=== PATIENT | male | born 1970 | race Caucasian/White ===

== ENCOUNTER 2021-06-15 14:52 | Inpatient (IN) | payer MEDICAID, OTHER ==
[~2021-06-15] VITALS: Ht 182.9 cm; Wt 91.1 kg
[~2021-06-15 14:52] MED LIST: ENAL2.5T7 PO; INSLANTI SC; INSLISPI SC; METO25TA5 PO
[2021-06-15 15:30] LABS: Basophils # (auto) 0.1 10 ^3/uL (0-0.2); Basophils % (auto) 0.4 % (0.0-2.0); Eosinophils # (auto) 0 10 ^3/uL (0-0.8); Eosinophils % (auto) 0.1 % (0.0-7.0); Hematocrit 34.4 % (41.0-53.0); Hemoglobin 11.3 g/dL (13.5-17.5); Lymphocytes # (auto) 0.9 10 ^3/uL (0.4-5.4); Lymphocytes % (auto) 6.8 % (10.0-50.0); Mean Corpuscular Hemoglobin 27.4 pg (28.0-32.0); Mean Corpuscular Hgb Conc. 32.9 g/dL (32.0-36.0); Mean Corpuscular Volume 83.2 fL (80.0-100.0); Monocytes # (auto) 0.8 10 ^3/uL (0-1.3); Monocytes % (auto) 6.3 % (0.0-12.0); Neutrophils # (auto) 11.1 10 ^3/uL (1.6-8.6); Neutrophils % (auto) 86.4 % (37.0-80.0); Red Blood Cells 4.13 10^6/uL (4.5-5.90); Red Cell Distribution Width 15.1 % (11.8-14.3); White Blood Cell 12.8 10^3/uL (4.4-10.8)
[2021-06-15 15:50] LABS: Albumin 3.1 g/dL (3.4-5.0); BUN/Creatinine Ratio 12.2; Potassium 5.1 mmol/L (3.5-5.1)
[2021-06-15 15:53] LABS: Bilirubin, Total 0.4 mg/dL (0.2-1.0); Total Protein 7.9 g/dL (6.4-8.2)
[2021-06-15] MEDS ORDERED: DEXTROSE (50%) 50ML SYRG IV ONE (16:45)
[2021-06-15] MEDS ORDERED: MORPHINE SULF INJ 2 MG/ML SYRINGE 1ML IV PRN (16:45)
[2021-06-15] MEDS ORDERED: NITROGLYCERIN 0.4 MG SL TAB SL PRN (16:45)
[2021-06-15] MEDS ORDERED: ONDANSETRON HCL 4 MG/2 ML VIAL IV PRN (16:45)
[2021-06-15] MEDS ORDERED: ACCU-CHEK COMFORT CURVE STRIP VI ONE (17:00)
[2021-06-15] MEDS ORDERED: InsuLIN REG 1unit/0.01ml Soln (100units/ml) SC ONE (17:00)
[2021-06-15 17:57] LABS: Urine WBC None Seen /hpf (0 - 3)
[2021-06-15 18:01] LABS: Urine Bacteria NONE SEEN /hpf (None Seen); Urine Blood 3+ /uL (Negative); Urine Budding Yeast MANY /hpf (None Seen); Urine Specific Gravity 1.016 (1.001-1.035); Urine Sperm PRESENT /hpf (None Seen)
[2021-06-15 18:08] LABS: Alcohol, Urine < 3.0 mg/dL (0-10); Amphetamine Screen, Urine POSITIVE (NEGATIVE); Barbiturate Scree,Urine NEGATIVE (NEGATIVE); Benzodiazephine Screen, Urine NEGATIVE (NEGATIVE); Cannabinoid Screen, Urine POSITIVE (NEGATIVE); Cocaine Screen, Urine NEGATIVE (NEGATIVE); Opiate Scree,Urine NEGATIVE (NEGATIVE)
[2021-06-15 18:15] LABS: Phencyclidine Screen, Urine NEGATIVE (NEGATIVE)
[2021-06-15] MEDS: METOPROLOL TARTRATE 25 MG TAB PO SCH (22:03)
[2021-06-15 22:38] VITALS: BP 168/93
[2021-06-15] MEDS ORDERED: LISI20TA28 PO (22:55)
[2021-06-16] MEDS: MORPHINE SULF INJ 2 MG/ML SYRINGE 1ML IV PRN ×2 (03:14→19:06)
[2021-06-16] MEDS: ACETAMINOPHEN 325 MG TAB PO PRN (03:20)
[2021-06-16 04:57] LABS: Hematocrit 36.1 % (41.0-53.0); Mean Corpuscular Hemoglobin 27.5 pg (28.0-32.0); Mean Corpuscular Hgb Conc. 33.2 g/dL (32.0-36.0); Mean Corpuscular Volume 82.9 fL (80.0-100.0); Red Blood Cells 4.36 10^6/uL (4.5-5.90); Red Cell Distribution Width 15.3 % (11.8-14.3); White Blood Cell 24.7 10^3/uL (4.4-10.8)
[2021-06-16 05:00] VITALS: BP 124/79
[2021-06-16 05:16] LABS: Albumin 2.7 g/dL (3.4-5.0); BUN/Creatinine Ratio 14.2; Calcium 7.8 mg/dL (8.5-10.1); Potassium 4.8 mmol/L (3.5-5.1)
[2021-06-16 05:18] LABS: Bilirubin, Total 0.4 mg/dL (0.2-1.0); Total Protein 7.7 g/dL (6.4-8.2)
[2021-06-16 05:20] LABS: Basophils % (manual) 0 (0.0-2.0); Blast Cells 0; Eosinophils % (manual) 0 (0-7); Metamyelocytes % 0; Myelocytes % 0; Promyelocytes % 0; Reactive Lymphocytes 0
[2021-06-16 06:06] LABS: Band Neutrophils % (manual) 33; Lymphocytes % (manual) 1 (10.0-50.0); Monocytes % (manual) 2 (0-12)
[2021-06-16 08:00] VITALS: BP 121/77
[2021-06-16 09:00] VITALS: BP 121/77
[2021-06-16] MEDS ORDERED: ENALAPRIL MALEATE 2.5 MG TAB PO SCH (10:00)
[2021-06-16] MEDS: METOPROLOL TARTRATE 25 MG TAB PO SCH ×2 (10:30→21:51)
[2021-06-16] MEDS: ENALAPRIL MALEATE 10 MG TAB PO SCH (10:30)
[2021-06-16] MEDS ORDERED: VANCOMYCIN PER PHARMACY 0 MG IV SCH (11:00)
[2021-06-16] MEDS ORDERED: VANCOMYCIN 1GM/250ML 250 ML IV ONE (12:00)
[2021-06-16 13:00] VITALS: BP 95/57
[2021-06-16] MEDS: FUROSEMIDE 40 MG/4 ML VIAL IV SCH ×2 (13:10→18:40)
[2021-06-16] MEDS: SODIUM BICARBONATE 650 MG TAB PO SCH ×2 (14:50→21:51)
[2021-06-16 17:00] VITALS: BP 102/63
[2021-06-16] MEDS: SEVELAMER 800 MG TAB PO SCH (18:39)
[2021-06-16 22:00] VITALS: BP 144/73
[2021-06-17] MEDS: ACETAMINOPHEN 325 MG TAB PO PRN (04:52)
[2021-06-17] MEDS: SODIUM BICARBONATE 650 MG TAB PO SCH ×2 (04:53→21:42)
[2021-06-17 05:00] VITALS: BP 109/64
[2021-06-17 05:30] LABS: Eosinophils # (auto) 0 10 ^3/uL (0-0.8); Eosinophils % (auto) 0.1 % (0.0-7.0); Monocytes # (auto) 0.6 10 ^3/uL (0-1.3); Nucleated Red Blood Cells % 0.1 %; Red Cell Distribution Width 15.2 % (11.8-14.3)
[2021-06-17 05:36] LABS: BUN/Creatinine Ratio 21.2; Calcium 7.6 mg/dL (8.5-10.1); Potassium 4.9 mmol/L (3.5-5.1)
[2021-06-17 05:49] LABS: Basophils # (auto) 0.1 10 ^3/uL (0-0.2); Basophils % (auto) 0.4 % (0.0-2.0); Hematocrit 33.5 % (41.0-53.0); Hemoglobin 11.1 g/dL (13.5-17.5); Lymphocytes # (auto) 0.5 10 ^3/uL (0.4-5.4); Lymphocytes % (auto) 3.4 % (10.0-50.0); Mean Corpuscular Hemoglobin 27.5 pg (28.0-32.0); Mean Corpuscular Hgb Conc. 33.2 g/dL (32.0-36.0); Mean Corpuscular Volume 82.9 fL (80.0-100.0); Monocytes % (auto) 3.8 % (0.0-12.0); Neutrophils # (auto) 13.9 10 ^3/uL (1.6-8.6); Neutrophils % (auto) 92.3 % (37.0-80.0); Red Blood Cells 4.04 10^6/uL (4.5-5.90)
[2021-06-17] MEDS: FUROSEMIDE 40 MG/4 ML VIAL IV SCH (06:12)
[2021-06-17 08:11] VITALS: BP 95/55
[2021-06-17 08:30] VITALS: BP 95/55
[2021-06-17] MEDS: SEVELAMER 800 MG TAB PO SCH ×3 (08:40→18:15)
[2021-06-17] MEDS: METOPROLOL TARTRATE 25 MG TAB PO SCH ×2 (09:56→21:42)
[2021-06-17] MEDS: ENALAPRIL MALEATE 10 MG TAB PO SCH (09:57)
[2021-06-17] MEDS ORDERED: LIDOCAINE 2%HCL (LOCAL ANESTH.) INJ 20ML MDV ONE (11:51)
[2021-06-17 12:43] VITALS: BP 93/52
[2021-06-17] MEDS ORDERED: SODIUM CHLORIDE 0.9% 1,000 ML IV ONE (12:45)
[2021-06-17] MEDS ORDERED: VANCOMYCIN 500 MG in D5W 5% 100 ML IV ONE (16:00)
[2021-06-17 17:17] VITALS: BP 115/56
[2021-06-17] MEDS: MORPHINE SULF INJ 2 MG/ML SYRINGE 1ML IV PRN (18:16)
[2021-06-17 21:55] VITALS: BP 141/78
[2021-06-18] MEDS: MORPHINE SULF INJ 2 MG/ML SYRINGE 1ML IV PRN ×4 (01:17→22:32)
[2021-06-18] MEDS: ACETAMINOPHEN 325 MG TAB PO PRN (04:08)
[2021-06-18 05:22] VITALS: BP 119/78
[2021-06-18 05:53] LABS: BUN/Creatinine Ratio 23.6; Calcium 7.2 mg/dL (8.5-10.1); Potassium 4.5 mmol/L (3.5-5.1)
[2021-06-18 07:35] VITALS: BP 99/64
[2021-06-18] MEDS: SEVELAMER 800 MG TAB PO SCH ×3 (07:57→18:19)
[2021-06-18] MEDS ORDERED: cefTRIAXone 1GM/50ML D5W 50 ML IV SCH (09:00)
[2021-06-18] MEDS: METOPROLOL TARTRATE 25 MG TAB PO SCH ×2 (10:15→22:31)
[2021-06-18] MEDS: FUROSEMIDE 40 MG/4 ML VIAL IV SCH (10:15)
[2021-06-18] MEDS: ENALAPRIL MALEATE 10 MG TAB PO SCH (10:15)
[2021-06-18] MEDS: SODIUM BICARBONATE 650 MG TAB PO SCH ×2 (10:15→22:31)
[2021-06-18 13:03] VITALS: BP 99/63
[2021-06-18] MEDS ORDERED: VANCOMYCIN 500 MG in D5W 5% 100 ML IV ONE (16:00)
[2021-06-18 17:10] VITALS: BP 157/86
[2021-06-18 21:52] VITALS: BP 137/85
[2021-06-19] MEDS: MORPHINE SULF INJ 2 MG/ML SYRINGE 1ML IV PRN ×5 (03:00→21:21)
[2021-06-19 05:46] VITALS: BP 136/78
[2021-06-19 09:00] VITALS: BP 114/69
[2021-06-19] MEDS: SEVELAMER 800 MG TAB PO SCH ×3 (09:20→19:04)
[2021-06-19] MEDS: SODIUM BICARBONATE 650 MG TAB PO SCH ×2 (09:20→22:08)
[2021-06-19] MEDS: METOPROLOL TARTRATE 25 MG TAB PO SCH ×2 (09:22→22:09)
[2021-06-19] MEDS: FUROSEMIDE 40 MG/4 ML VIAL IV SCH (09:22)
[2021-06-19 13:00] VITALS: BP 103/71
[2021-06-19 17:00] VITALS: BP 101/63
[2021-06-19] MEDS ORDERED: VANCOMYCIN 500 MG in D5W 5% 100 ML IV ONE (18:00)
[2021-06-19 22:00] VITALS: BP 123/71
[2021-06-20] MEDS: MORPHINE SULF INJ 2 MG/ML SYRINGE 1ML IV PRN ×5 (00:39→21:57)
[2021-06-20 05:00] VITALS: BP 123/71
[2021-06-20 06:11] LABS: Basophils # (auto) 0 10 ^3/uL (0-0.2); Basophils % (auto) 0.4 % (0.0-2.0); Eosinophils # (auto) 0.1 10 ^3/uL (0-0.8); Eosinophils % (auto) 0.8 % (0.0-7.0); Hematocrit 30.3 % (41.0-53.0); Hemoglobin 10.3 g/dL (13.5-17.5); Lymphocytes # (auto) 0.7 10 ^3/uL (0.4-5.4); Lymphocytes % (auto) 7.6 % (10.0-50.0); Mean Corpuscular Hemoglobin 27.8 pg (28.0-32.0); Mean Corpuscular Volume 81.9 fL (80.0-100.0); Monocytes # (auto) 0.7 10 ^3/uL (0-1.3); Monocytes % (auto) 7.8 % (0.0-12.0); Neutrophils # (auto) 7.2 10 ^3/uL (1.6-8.6); Neutrophils % (auto) 83.4 % (37.0-80.0); Red Cell Distribution Width 14.8 % (11.8-14.3); White Blood Cell 8.6 10^3/uL (4.4-10.8)
[2021-06-20 06:26] LABS: BUN/Creatinine Ratio 26.8; Calcium 7.6 mg/dL (8.5-10.1); Magnesium 2.2 mg/dL (1.6-2.6); Potassium 4.7 mmol/L (3.5-5.1)
[2021-06-20] MEDS ORDERED: SODIUM CHL 0.9% 1000 ML BAG XX ONE (07:00)
[2021-06-20 08:53] VITALS: BP 113/74
[2021-06-20] MEDS: SEVELAMER 800 MG TAB PO SCH ×3 (09:37→19:05)
[2021-06-20] MEDS: METOPROLOL TARTRATE 25 MG TAB PO SCH ×2 (09:37→21:58)
[2021-06-20] MEDS: SODIUM BICARBONATE 650 MG TAB PO SCH ×2 (09:37→21:57)
[2021-06-20] MEDS ORDERED: FUROSEMIDE 100 MG/10ML VIAL IV SCH (10:00)
[2021-06-20] MEDS ORDERED: VANCOMYCIN 500 MG in D5W 5% 100 ML IV ONE (12:30)
[2021-06-20 13:06] VITALS: BP 105/72
[2021-06-20 16:22] VITALS: BP 118/74
[2021-06-20 20:00] VITALS: BP 110/70
[2021-06-20] MEDS ORDERED: EPOETIN ALFA-EPBX 10,000 UNIT/1ML VIAL SC ONE (21:00)
[2021-06-20 22:00] VITALS: BP 125/77
[2021-06-21] MEDS: MORPHINE SULF INJ 2 MG/ML SYRINGE 1ML IV PRN ×4 (04:10→22:38)
[2021-06-21 05:00] VITALS: BP 121/71
[2021-06-21 06:02] LABS: Basophils # (auto) 0 10 ^3/uL (0-0.2); Basophils % (auto) 0.5 % (0.0-2.0); Eosinophils # (auto) 0.1 10 ^3/uL (0-0.8); Eosinophils % (auto) 1.4 % (0.0-7.0); Hematocrit 30.9 % (41.0-53.0); Hemoglobin 10.4 g/dL (13.5-17.5); Lymphocytes # (auto) 0.8 10 ^3/uL (0.4-5.4); Lymphocytes % (auto) 11.8 % (10.0-50.0); Mean Corpuscular Hemoglobin 27.4 pg (28.0-32.0); Mean Corpuscular Hgb Conc. 33.6 g/dL (32.0-36.0); Mean Corpuscular Volume 81.8 fL (80.0-100.0); Monocytes # (auto) 0.7 10 ^3/uL (0-1.3); Monocytes % (auto) 10.5 % (0.0-12.0); Neutrophils # (auto) 5.3 10 ^3/uL (1.6-8.6); Neutrophils % (auto) 75.8 % (37.0-80.0); Red Blood Cells 3.78 10^6/uL (4.5-5.90); Red Cell Distribution Width 15.1 % (11.8-14.3)
[2021-06-21 06:31] LABS: Potassium 5.3 mmol/L (3.5-5.1)
[2021-06-21 06:35] LABS: BUN/Creatinine Ratio 27.8; Magnesium 2.3 mg/dL (1.6-2.6)
[2021-06-21 09:00] VITALS: BP 118/64
[2021-06-21] MEDS: METOPROLOL TARTRATE 25 MG TAB PO SCH ×2 (10:00→22:37)
[2021-06-21] MEDS: SODIUM BICARBONATE 650 MG TAB PO SCH ×2 (10:12→22:37)
[2021-06-21] MEDS: SEVELAMER 800 MG TAB PO SCH (10:12)
[2021-06-21] MEDS: SODIUM CHLORIDE 0.9% 1,000 ML IV SCH ×2 (11:45→21:30)
[2021-06-21] MEDS ORDERED: VANCOMYCIN 1GM/250ML 250 ML IV ONE (12:00)
[2021-06-21 13:00] VITALS: BP 104/69
[2021-06-21] MEDS: SODIUM ZIRCONIUM CYCL 10 GM PAK PO SCH (16:27)
[2021-06-21 17:00] VITALS: BP 134/64
[2021-06-21 22:00] VITALS: BP 158/76
[2021-06-22] MEDS: MORPHINE SULF INJ 2 MG/ML SYRINGE 1ML IV PRN ×4 (04:52→23:40)
[2021-06-22 05:27] VITALS: BP 140/71
[2021-06-22] MEDS: SODIUM CHLORIDE 0.9% 1,000 ML IV SCH ×2 (05:53→22:00)
[2021-06-22 06:24] LABS: BUN/Creatinine Ratio 28.6; Calcium 7.6 mg/dL (8.5-10.1)
[2021-06-22 06:31] LABS: Potassium 5.6 mmol/L (3.5-5.1)
[2021-06-22 09:00] VITALS: BP 154/87
[2021-06-22] MEDS: SODIUM ZIRCONIUM CYCL 10 GM PAK PO SCH (10:20)
[2021-06-22] MEDS: METOPROLOL TARTRATE 25 MG TAB PO SCH ×2 (10:56→21:48)
[2021-06-22] MEDS: SODIUM BICARBONATE 650 MG TAB PO SCH ×2 (10:57→21:48)
[2021-06-22 13:00] VITALS: BP 132/91
[2021-06-22] MEDS ORDERED: BUMETANIDE 2.5mg/10ml (0.25 mg/ml) INJ IV ONE (14:15)
[2021-06-22 17:00] VITALS: BP 140/82
[2021-06-22] MEDS: HYDROcodone-ACET 5/325MG TAB PO PRN (20:21)
[2021-06-22] MEDS: LINEZOLID 600MG TABLET PO SCH (21:49)
[2021-06-22 22:00] VITALS: BP 143/77
[2021-06-22] MEDS ORDERED: VANCOMYCIN 1GM/250ML 250 ML IV ONE (23:45)
[2021-06-23 05:00] VITALS: BP 150/83
[2021-06-23] MEDS: MORPHINE SULF INJ 2 MG/ML SYRINGE 1ML IV PRN ×3 (06:04→18:17)
[2021-06-23] MEDS: SODIUM CHLORIDE 0.9% 1,000 ML IV SCH ×2 (06:52→13:30)
[2021-06-23 09:00] VITALS: BP 154/80
[2021-06-23] MEDS: LINEZOLID 600MG TABLET PO SCH ×2 (10:31→21:20)
[2021-06-23] MEDS: SODIUM ZIRCONIUM CYCL 10 GM PAK PO SCH (10:31)
[2021-06-23] MEDS: METOPROLOL TARTRATE 25 MG TAB PO SCH ×2 (10:32→21:21)
[2021-06-23] MEDS: SODIUM BICARBONATE 650 MG TAB PO SCH (10:32)
[2021-06-23] MEDS: HYDROcodone-ACET 5/325MG TAB PO PRN ×2 (10:36→21:34)
[2021-06-23 13:00] VITALS: BP 142/82
[2021-06-23 16:46] VITALS: BP 142/79
[2021-06-23 17:55] LABS: Hepatitis A Ab IgM Negative
[2021-06-23 17:56] LABS: Hepatitis B Core IgM Negative; Hepatitis B Surface Antigen Negative (Negative)
[2021-06-23 18:05] LABS: Hepatitis C Antibody Positive (Negative)
[2021-06-23 22:00] VITALS: BP 149/89
[2021-06-24] MEDS: MORPHINE SULF INJ 2 MG/ML SYRINGE 1ML IV PRN ×4 (00:31→21:38)
[2021-06-24 05:00] VITALS: BP 140/77
[2021-06-24 05:32] LABS: Basophils # (auto) 0.1 10 ^3/uL (0-0.2); Eosinophils # (auto) 0.1 10 ^3/uL (0-0.8); Eosinophils % (auto) 1.5 % (0.0-7.0); Hematocrit 28.1 % (41.0-53.0); Hemoglobin 9.6 g/dL (13.5-17.5); Lymphocytes # (auto) 1.2 10 ^3/uL (0.4-5.4); Lymphocytes % (auto) 21.5 % (10.0-50.0); Mean Corpuscular Hemoglobin 27.9 pg (28.0-32.0); Mean Corpuscular Hgb Conc. 34.2 g/dL (32.0-36.0); Mean Corpuscular Volume 81.7 fL (80.0-100.0); Monocytes # (auto) 0.5 10 ^3/uL (0-1.3); Monocytes % (auto) 9.2 % (0.0-12.0); Neutrophils # (auto) 3.7 10 ^3/uL (1.6-8.6); Neutrophils % (auto) 66.8 % (37.0-80.0); Nucleated Red Blood Cells % 0.1 %; Red Blood Cells 3.44 10^6/uL (4.5-5.90); Red Cell Distribution Width 14.8 % (11.8-14.3); White Blood Cell 5.5 10^3/uL (4.4-10.8)
[2021-06-24 06:07] LABS: BUN/Creatinine Ratio 25.7; Magnesium 2.1 mg/dL (1.6-2.6)
[2021-06-24 06:47] LABS: Potassium 5.7 mmol/L (3.5-5.1)
[2021-06-24] MEDS: SODIUM ZIRCONIUM CYCL 10 GM PAK PO SCH ×3 (08:49→21:28)
[2021-06-24] MEDS: METOPROLOL TARTRATE 25 MG TAB PO SCH ×2 (08:49→21:28)
[2021-06-24] MEDS: LINEZOLID 600MG TABLET PO SCH ×2 (08:49→21:28)
[2021-06-24 09:00] VITALS: BP 163/84
[2021-06-24] MEDS: HEPARIN SODIUM (PORCINE) 5000 UNITS/ML 1ML VIAL SC SCH ×2 (11:06→21:28)
[2021-06-24 13:00] VITALS: BP 140/78
[2021-06-24 16:08] VITALS: BP 150/90
[2021-06-24 22:00] VITALS: BP_SYST 145; BP_SYST 147; BP_DIAS 77; BP_DIAS 81
[2021-06-25 05:00] VITALS: BP 154/89
[2021-06-25] MEDS: MORPHINE SULF INJ 2 MG/ML SYRINGE 1ML IV PRN ×3 (05:28→18:41)
[2021-06-25] MEDS: SODIUM ZIRCONIUM CYCL 10 GM PAK PO SCH ×3 (05:34→20:00)
[2021-06-25 09:07] VITALS: BP 154/97
[2021-06-25 10:05] LABS: INR 1.11 (0.9-1.15); Partial Thromboplastin Time 26.7 sec (23.0-31.2)
[2021-06-25] MEDS: HEPARIN SODIUM (PORCINE) 5000 UNITS/ML 1ML VIAL SC SCH ×2 (10:08→22:32)
[2021-06-25] MEDS: METOPROLOL TARTRATE 25 MG TAB PO SCH ×2 (10:08→22:31)
[2021-06-25] MEDS: LINEZOLID 600MG TABLET PO SCH ×2 (10:11→22:31)
[2021-06-25 10:13] LABS: Potassium 5.3 mmol/L (3.5-5.1)
[2021-06-25 10:22] LABS: BUN/Creatinine Ratio 23.6; Calcium 7.9 mg/dL (8.5-10.1)
[2021-06-25 13:00] VITALS: BP 140/84
[2021-06-25 17:06] VITALS: BP 150/94
[2021-06-25] MEDS: HYDROcodone-ACET 5/325MG TAB PO PRN (20:43)
[2021-06-25 22:00] VITALS: BP 151/95
[2021-06-26] MEDS: MORPHINE SULF INJ 2 MG/ML SYRINGE 1ML IV PRN ×3 (01:59→14:39)
[2021-06-26 05:00] VITALS: BP 135/81
[2021-06-26] MEDS: SODIUM ZIRCONIUM CYCL 10 GM PAK PO SCH ×3 (05:56→20:54)
[2021-06-26 09:00] VITALS: BP 127/72
[2021-06-26] MEDS: FUROSEMIDE 100 MG/10ML VIAL IV SCH (09:51)
[2021-06-26] MEDS: METOPROLOL TARTRATE 25 MG TAB PO SCH ×2 (09:51→22:00)
[2021-06-26] MEDS: LINEZOLID 600MG TABLET PO SCH (09:51)
[2021-06-26] MEDS: HEPARIN SODIUM (PORCINE) 5000 UNITS/ML 1ML VIAL SC SCH ×2 (10:00→20:55)
[2021-06-26 11:48] LABS: BUN/Creatinine Ratio 21.9; Calcium 8.1 mg/dL (8.5-10.1)
[2021-06-26 13:00] VITALS: BP 124/80
[2021-06-26 17:00] VITALS: BP 146/85
[2021-06-26] MEDS ORDERED: LIDOCAINE 1% (LOCAL ANESTH.) PF 5ml SDV ID ONE (18:00)
[2021-06-26] MEDS ORDERED: DAPTOmycin 0 MG in SODIUM CHL 0.9% 50 ML IV STA (18:02)
[2021-06-26] MEDS ORDERED: DAPTOmycin 500 MG in SODIUM CHL 0.9% 50 ML IV SCH (20:00)
[2021-06-26] MEDS: SODIUM CHLOR 0.9% PF (SALINE LOCK) 10ML VIAL/SYR IV SCH (20:55)
[2021-06-26 22:00] VITALS: BP 138/89
[2021-06-27] MEDS: MORPHINE SULF INJ 2 MG/ML SYRINGE 1ML IV PRN ×3 (02:24→14:19)
[2021-06-27 05:00] VITALS: BP 131/81
[2021-06-27] MEDS: SODIUM ZIRCONIUM CYCL 10 GM PAK PO SCH ×2 (06:55→14:18)
[2021-06-27] MEDS: SODIUM CHLOR 0.9% PF (SALINE LOCK) 10ML VIAL/SYR IV SCH (08:21)
[2021-06-27 09:00] VITALS: BP 149/83
[2021-06-27] MEDS: METOPROLOL TARTRATE 25 MG TAB PO SCH (09:03)
[2021-06-27] MEDS: FUROSEMIDE 100 MG/10ML VIAL IV SCH (09:03)
[2021-06-27] MEDS: HEPARIN SODIUM (PORCINE) 5000 UNITS/ML 1ML VIAL SC SCH (10:00)
[2021-06-27 10:15] LABS: Potassium 4.6 mmol/L (3.5-5.1)
[2021-06-27 10:20] LABS: BUN/Creatinine Ratio 20.6; Calcium 8.1 mg/dL (8.5-10.1)
[2021-06-27 13:00] VITALS: BP 151/90
[2021-06-27 14:06] VITALS: BP 143/86
[2021-06-27 17:00] VITALS: BP 152/86
[2021-06-27] MEDS ORDERED: DAPTOmycin 500 MG in SODIUM CHL 0.9% 50 ML IV SCH (20:00)
== END 2021-06-27 17:45 | DRG 721 ==
LOC: EDBD 14:52 → ER 14:52 → TELE 16:45 → TELE-WESTW 20:27
PROVIDERS: ADMIT Internal Medicine; ATTEND Internal Medicine
PROC: 02PYX3Z Removal of Infusion Device from Great Vessel, External Approach (ICD-10-PCS; 2021-06-17)
PROC: 02HV33Z Insertion of Infusion Device into Superior Vena Cava, Percutaneous Approach (ICD-10-PCS; principal; 2021-06-26)
DX: T80.211A Bloodstream infection due to central venous catheter, initial encounter (principal); A41.89 Other specified sepsis; I76 Septic arterial embolism; N17.9 Acute kidney failure, unspecified; E11.22 Type 2 diabetes mellitus with diabetic chronic kidney disease; I12.0 Hypertensive chronic kidney disease with stage 5 chronic kidney disease or end stage renal disease; K74.60 Unspecified cirrhosis of liver; E87.1 Hypo-osmolality and hyponatremia; N18.6 End stage renal disease; E88.09 Other disorders of plasma-protein metabolism, not elsewhere classified; Z99.2 Dependence on renal dialysis; E87.70 Fluid overload, unspecified; F12.90 Cannabis use, unspecified, uncomplicated; N39.0 Urinary tract infection, site not specified; E87.5 Hyperkalemia; F15.90 Other stimulant use, unspecified, uncomplicated; B95.62 Methicillin resistant Staphylococcus aureus infection as the cause of diseases classified elsewhere; F17.210 Nicotine dependence, cigarettes, uncomplicated; G89.4 Chronic pain syndrome; Z20.822 Contact with and (suspected) exposure to COVID-19; Z79.4 Long term (current) use of insulin; Z80.9 Family history of malignant neoplasm, unspecified; Z83.3 Family history of diabetes mellitus; Z85.038 Personal history of other malignant neoplasm of large intestine; Z90.49 Acquired absence of other specified parts of digestive tract; Z91.19 Patient's noncompliance with other medical treatment and regimen
CPT/HCPCS: 36415; 36569; 71045; 71046; 71250; 72131; 73721; 74176; 76000; 80048; 80053; 80074; 80202; 80307; 81001; 82550; 82565; 82962; 83036; 83735; 84100; 84484; 85007; 85025; 85027; 85610; 85730; 87040; 87070; 87077; 87086; 87186; 87426; 93005; 93306; 93970; 96374; 99291; G0378; J7060